=== PATIENT | female | born 2000 | race Caucasian/White ===

== ENCOUNTER 2019-08-29 08:40 | Emergency (ER) | payer OTHER ==
[~2019-08-29] VITALS: Ht 157.5 cm; Wt 57.7 kg
[~2019-08-29 08:40] MED LIST: FLAGYL500 MG PO; ZOFRAN 4MG T4 MG/TAB PO
[2019-08-29 08:44] VITALS: BP 118/78; TEMP 97.8
[2019-08-29] MEDS ORDERED: OMNICEF 300MG300 MG PO ×2 (09:05)
[2019-08-29] MEDS ORDERED: ZITHROMAX Z PA250 MG PO (09:08)
[2019-08-29 09:10] VITALS: PULSE 75
== END 2019-08-29 09:11 | disposition home or self-care (01) ==
LOC: COL.ER 08:40
DX: H65.192 Other acute nonsuppurative otitis media, left ear (principal)

== ENCOUNTER 2019-09-13 18:11 | Emergency (ER) | payer OTHER ==
[~2019-09-13] VITALS: Ht 160 cm; Wt 56.4 kg
[~2019-09-13 18:11] MED LIST changes: +OMNICEF 300MG300 MG PO; +ZITHROMAX Z PA250 MG PO
[2019-09-13 18:24] VITALS: BP 132/86; TEMP 99.1
[2019-09-13 20:05] VITALS: PULSE 88
== END 2019-09-13 20:06 | disposition home or self-care (01) ==
LOC: COL.ER 18:11
DX: S83.92XA Sprain of unspecified site of left knee, initial encounter (principal); Z88.2 Allergy status to sulfonamides; Z88.1 Allergy status to other antibiotic agents; W19.XXXA Unspecified fall, initial encounter
CPT/HCPCS: L1846

== ENCOUNTER 2019-10-05 16:15 | Outpatient (RCR) | payer OTHER | END 2019-10-17 | disposition still patient (30) | LOC: WSC | DX: S46.912A Strain of unspecified muscle, fascia and tendon at shoulder and upper arm level, left arm, initial encounter (principal) ==

== ENCOUNTER 2019-10-27 15:34 | Outpatient (RCR) | payer OTHER | END 2019-11-19 15:58 | disposition home or self-care (01) | LOC: WSC 15:34 | DX: S46.912A Strain of unspecified muscle, fascia and tendon at shoulder and upper arm level, left arm, initial encounter (principal) ==